=== PATIENT | male | born 1990 | race African-American/Black ===

== ENCOUNTER 2018-12-16 16:33 | Emergency (ER) | payer SELFPAY ==
[~2018-12-16] VITALS: Ht 177.8 cm; Wt 91.0 kg
[2018-12-16 17:39] VITALS: BP 134/85
[2018-12-16] MEDS ORDERED: LIDOCAINE HCL/EPINEPHRINE 1%-EPI 1:100,000 30 ML VIAL INFIL ONE (20:15)
[2018-12-16] MEDS ORDERED: LIDOCAINE HCL/EPINEPHRINE 1%-EPI 1:100,000 20 ML VIAL INFIL NR (20:30)
[2018-12-16] MEDS ORDERED: LIDOCAINE HCL 1% 20ML VIAL (Pyxis) INJ INFIL ONE (20:30)
[2018-12-16] MEDS ORDERED: IBUPROFEN 800MG TABLET PO ONE (21:15)
== END 2018-12-16 21:32 | disposition home or self-care (01) ==
LOC: ER 16:33
DX: S69.92XA Unspecified injury of left wrist, hand and finger(s), initial encounter (principal); F17.200 Nicotine dependence, unspecified, uncomplicated; W45.8XXA Other foreign body or object entering through skin, initial encounter; Y93.89 Activity, other specified; Y92.89 Other specified places as the place of occurrence of the external cause; Y99.8 Other external cause status
CPT/HCPCS: 64450; 99284; J3490; 26770